=== PATIENT | female | born 2000 ===

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

== ENCOUNTER 2018-01-27 12:54 | Emergency (ER) | payer OTHER ==
[2018-01-27 12:54] VITALS: O2SAT 99
[2018-01-27 13:05] VITALS: BP 121/73; PULSE 99; RESP 18; TEMP 97.3
[2018-01-27 13:39] LABS: BASOPHILS % (AUTO) 0 % (0-3); EOSINOPHILS % (AUTO) 0 % (0-9); HEMATOCRIT 35 % (35-47); HEMOGLOBIN 11.5 gm/dl (12.0-15.5); LYMPHOCYTES % (AUTO) 26.3 % (10-50); MEAN CORPUSCULAR HEMOGLOBIN 27.6 pg (27.0-32.0); MEAN CORPUSCULAR HGB CONC 32.9 gm/dl (32.0-36.0); MEAN CORPUSCULAR VOLUME 84 fL (81-99); MONOCYTES % (AUTO) 9.5 % (0-12); NEUTROPHILS % (AUTO) 63.3 % (37-80)
[2018-01-27 13:52] LABS: ALBUMIN 2.8 gm/dl (3.4-5.0); BILIRUBIN,TOTAL 0.3 mg/dl (0.2-1.0); CALCIUM 8.6 mg/dl (8.5-10.1); CARBON DIOXIDE 28.2 mEq/L (21-32); CREATININE 0.74 mg/dl (0.60-1.00); POTASSIUM 3.5 mMol/L (3.5-5.1); TOTAL PROTEIN 7.5 gm/dl (6.4-8.2)
[2018-01-27 14:18] LABS: APPEARANCE,URINE Clear; BILIRUBIN,URINE 1+ (NEGATIVE); COLOR,URINE Dark yellow; GLUCOSE, URINE (UA) NEGATIVE (NEGATIVE); KETONES,URINE NEGATIVE (NEGATIVE); LEUKOCYTE ESTERASE ,URINE NEGATIVE (NEGATIVE); NITRATE,URINE NEGATIVE (NEGATIVE); OCCULT BLOOD,URINE 3+ (NEG-TRACE); UROBILINOGEN,URINE 0.2 (0.2-1.0 EU)
[2018-01-27 14:27] LABS: BACTERIA 1+ (< 1+); CRYSTALS NEGATIVE (0-3 AVE/HPF); ICTOTEST,URINE NEGATIVE (NEGATIVE); RBC,URINE 80-100 (0-3AV/HPF)
== END 2018-01-27 16:43 | disposition home or self-care (01) ==
LOC: ED 12:54
DX: K52.9 Noninfective gastroenteritis and colitis, unspecified (principal); R10.13 Epigastric pain
CPT/HCPCS: 36415; 74019; 74177; 80053; 81001; 84703; 85025; 87088; 99283; Q9967